=== PATIENT | male | born 1940 | race Two or more races ===

== ENCOUNTER 2017-10-25 08:39 | Inpatient (IN) | payer OTHER ==
[~2017-10-25] VITALS: Ht 170.2 cm; Wt 81.6 kg
[2017-10-25 09:05] VITALS: Ht 170.2 cm; Wt 81.6 kg
[2017-10-25 10:28] LABS: CARBON DIOXIDE 26.6 mmol/L (21-32); CHLORIDE SERUM 106 mmol/L (98-107); CREATININE SERUM 0.9 mg/dL (0.7-1.3); GLUCOSE SERUM 116 mg/dL (74-106); SODIUM SERUM 139 mmol/L (136-145)
[2017-10-25 10:31] LABS: PLATELET COUNT 285 x10^3mcL (130-400); RED CELL DISTRIBUTION WIDTH 15.4 % (11.5-14.5)
[2017-10-25 10:32] LABS: BASOPHIL % 0.1 % (0-2)
[2017-10-25 10:33] LABS: ALKALINE PHOSPHATASE 66 U/L (46-116); ALT/SGPT 15 U/L (16-63); AST/SGOT 11 U/L (15-37); BILIRUBIN TOTAL 0.2 mg/dL (0.20-1.00)
[2017-10-25 10:35] LABS: ALBUMIN 2.9 g/dL (3.4-5.0)
[2017-10-25] MEDS ORDERED: THE50 (11:38)
[2017-10-25] MEDS ORDERED: LOSARTAN POTASS25 M1 (11:38)
[2017-10-25 12:31] LABS: CHOLESTEROL/HDL RATIO 3.3; MAGNESIUM 1.8 mg/dL (1.8-2.4); PHOSPHOROUS 1.8 mg/dL (2.5-4.9)
[2017-10-25 12:37] LABS: T3 TOTAL 0.81 ng/mL
[2017-10-25 12:39] LABS: FREE T4 1.07 ng/dL (0.76-1.46); FREE THYROXINE INDEX 2.8 ug/dL (1.4-4.5); T4(THYROXINE) 7.3 ug/dL (4.7-13.3)
[2017-10-25 13:40] VITALS: BP 94/72
[2017-10-25 14:03] LABS: AMPHETAMINE QUAL UR NONE DETECTED (NEG <=1000)
[2017-10-25 16:30] VITALS: BP 124/58
[2017-10-25 17:47] LABS: PLATELET COUNT 286 x10^3mcL (130-400)
[2017-10-25 17:50] LABS: RED CELL DISTRIBUTION WIDTH 15.2 % (11.5-14.5)
[2017-10-25 22:02] VITALS: BP 110/49
[2017-10-26 06:12] VITALS: BP 114/50
[2017-10-26 07:13] VITALS: BP 114/50
[2017-10-26 07:32] LABS: CALCIUM 7.7 mg/dL (8.5-10.1); CARBON DIOXIDE 22.7 mmol/L (21-32); CHLORIDE SERUM 108 mmol/L (98-107); CREATININE SERUM 1.1 mg/dL (0.7-1.3); GLUCOSE SERUM 99 mg/dL (74-106); MAGNESIUM 1.9 mg/dL (1.8-2.4); PHOSPHOROUS 2.5 mg/dL (2.5-4.9); POTASSIUM SERUM 4.3 mmol/L (3.5-5.1); SODIUM SERUM 140 mmol/L (136-145)
[2017-10-26 11:45] LABS: BASOPHIL % 1.5 % (0-2); PLATELET COUNT 268 x10^3mcL (130-400)
[2017-10-26 12:00] LABS: RED CELL DISTRIBUTION WIDTH 14.9 % (11.5-14.5)
[2017-10-26 14:10] VITALS: BP 113/48
[2017-10-26] MEDS ORDERED: FER300 PO (15:42)
[2017-10-26] MEDS ORDERED: NEPHRO-VITE VITA1 EA PO (15:43)
[2017-10-26] MEDS ORDERED: OMEPRAZOLE40 M1 PO (15:45)
[2017-10-26 17:43] VITALS: BP 113/48
[2017-10-26 18:00] VITALS: BP 115/49
== END 2017-10-26 18:55 | disposition home or self-care (01) | DRG 243 ==
LOC: ED 08:39 → DU 10:57
PROVIDERS: Emergency Medicine; Family Medicine; Internal Medicine Gastroenterology
PROC: 0DB58ZX Excision of Esophagus, Via Natural or Artificial Opening Endoscopic, Diagnostic (ICD-10-PCS; principal; 2017-10-26 08:00)
PROC: 0DB68ZX Excision of Stomach, Via Natural or Artificial Opening Endoscopic, Diagnostic (ICD-10-PCS; 2017-10-26 08:00)
DX: K22.11 Ulcer of esophagus with bleeding (principal); N17.0 Acute kidney failure with tubular necrosis; E43 Unspecified severe protein-calorie malnutrition; E83.39 Other disorders of phosphorus metabolism; E11.9 Type 2 diabetes mellitus without complications; D64.9 Anemia, unspecified; I10 Essential (primary) hypertension; K44.9 Diaphragmatic hernia without obstruction or gangrene; K21.9 Gastro-esophageal reflux disease without esophagitis; E78.1 Pure hyperglyceridemia; Z68.32 Body mass index [BMI] 32.0-32.9, adult
CPT/HCPCS: 43235; 82962; 84439; 94150; C9113; J1200; J1610; J2250; J2310; J2405; J3010; J3490; J7030; J7620; Q0092

== ENCOUNTER 2020-02-01 20:24 | Inpatient (IN) | payer OTHER ==
[~2020-02-01] VITALS: Ht 175.3 cm; Wt 88.5 kg
[~2020-02-01 20:24] MED LIST: FER300 PO; LOSARTAN POTASS25 M1; NEPHRO-VITE VITA1 EA PO; OMEPRAZOLE40 M1 PO; THE50
[2020-02-01 21:49] LABS: microscopic required? NO
[2020-02-01 22:09] LABS: BASOPHIL % 0.7 % (0-2); PLATELET COUNT 278 x10^3mcL (130-400); RED CELL DISTRIBUTION WIDTH 14.1 % (11.5-14.5)
[2020-02-01 22:09] LABS: UA SPECIFIC GRAVITY 1.015 (1.005-1.035); urine erythrocyte NEGATIVE (NEGATIVE)
[2020-02-01 22:25] LABS: CALCIUM 9.1 mg/dL (8.5-10.1); CARBON DIOXIDE 27.7 mmol/L (21-32); CHLORIDE SERUM 104 mmol/L (98-107); CREATININE SERUM 1.1 mg/dL (0.7-1.3); GLUCOSE SERUM 109 mg/dL (74-106); POTASSIUM SERUM 4.1 mmol/L (3.5-5.1); SODIUM SERUM 139 mmol/L (136-145)
[2020-02-01 22:29] LABS: ALBUMIN 3.5 g/dL (3.4-5.0); ALKALINE PHOSPHATASE 90 U/L (46-116); ALT/SGPT 20 U/L (16-63); AST/SGOT 17 U/L (15-37); BILIRUBIN TOTAL 0.2 mg/dL (0.20-1.00); C REACTIVE PROTEIN 0.7 mg/dL (<=0.9); LACTIC DEHYDROGENASE (LDH) 210 U/L (100-190); TOTAL PROTEIN, SERUM 7.3 g/dL (6.4-8.2)
[2020-02-02 00:21] LABS: CHOLESTEROL/HDL RATIO 3.4
[2020-02-02 00:30] VITALS: BP 164/83
[2020-02-02 00:48] VITALS: BP 139/61
[2020-02-02 00:51] VITALS: Ht 175.3 cm; Wt 88.5 kg
[2020-02-02 07:19] LABS: BASOPHIL % 0.2 % (0-2); PLATELET COUNT 290 x10^3mcL (130-400); RED CELL DISTRIBUTION WIDTH 13.8 % (11.5-14.5)
[2020-02-02 07:48] LABS: CALCIUM 9.2 mg/dL (8.5-10.1); CARBON DIOXIDE 26.5 mmol/L (21-32); CHLORIDE SERUM 103 mmol/L (98-107); GLUCOSE SERUM 145 mg/dL (74-106); MAGNESIUM 1.8 mg/dL (1.8-2.4); PHOSPHOROUS 2.6 mg/dL (2.5-4.9); POTASSIUM SERUM 4.6 mmol/L (3.5-5.1); SODIUM SERUM 139 mmol/L (136-145)
[2020-02-02 09:00] VITALS: BP 148/78
[2020-02-02 13:13] VITALS: BP 150/79
[2020-02-02 16:00] VITALS: BP 158/91
[2020-02-02 21:20] VITALS: BP 151/68
[2020-02-03 05:22] VITALS: BP 144/66
[2020-02-03 06:27] LABS: PLATELET COUNT 273 x10^3mcL (130-400); RED CELL DISTRIBUTION WIDTH 13.6 % (11.5-14.5)
[2020-02-03 06:39] LABS: CALCIUM 9.4 mg/dL (8.5-10.1); CARBON DIOXIDE 28.2 mmol/L (21-32); CHLORIDE SERUM 103 mmol/L (98-107); CREATININE SERUM 1.1 mg/dL (0.7-1.3); GLUCOSE SERUM 139 mg/dL (74-106); MAGNESIUM 2.1 mg/dL (1.8-2.4); SODIUM SERUM 138 mmol/L (136-145)
[2020-02-03 06:46] LABS: AMPHETAMINE QUAL UR NONE DETECTED (See below)
[2020-02-03 08:28] LABS: BASOPHIL % 0 % (0-2)
[2020-02-03 09:00] VITALS: BP 137/87
[2020-02-03 11:29] VITALS: BP 165/83
[2020-02-03 17:50] VITALS: BP 168/68
[2020-02-03 19:47] VITALS: BP 154/74
[2020-02-04 05:14] VITALS: BP 158/73
[2020-02-04 06:37] LABS: CALCIUM 9.4 mg/dL (8.5-10.1); CARBON DIOXIDE 25.8 mmol/L (21-32); CHLORIDE SERUM 104 mmol/L (98-107); GLUCOSE SERUM 134 mg/dL (74-106); MAGNESIUM 2.3 mg/dL (1.8-2.4); PHOSPHOROUS 3.4 mg/dL (2.5-4.9); POTASSIUM SERUM 4.5 mmol/L (3.5-5.1); SODIUM SERUM 140 mmol/L (136-145)
[2020-02-04 06:46] LABS: PLATELET COUNT 277 x10^3mcL (130-400)
[2020-02-04 06:47] LABS: BASOPHIL % 0 % (0-2)
[2020-02-04 08:40] VITALS: BP 166/78
[2020-02-04 12:15] VITALS: BP 172/81
[2020-02-04 16:45] VITALS: BP 179/86
[2020-02-04 17:42] VITALS: BP 173/90
[2020-02-04 20:43] VITALS: BP 149/74
[2020-02-05 05:47] VITALS: BP 150/73
[2020-02-05 07:15] LABS: PLATELET COUNT 305 x10^3mcL (130-400); RED CELL DISTRIBUTION WIDTH 13.8 % (11.5-14.5)
[2020-02-05 07:28] LABS: CALCIUM 9.3 mg/dL (8.5-10.1); CHLORIDE SERUM 101 mmol/L (98-107); GLUCOSE SERUM 123 mg/dL (74-106); MAGNESIUM 2.3 mg/dL (1.8-2.4); PHOSPHOROUS 4.1 mg/dL (2.5-4.9); POTASSIUM SERUM 4.6 mmol/L (3.5-5.1); SODIUM SERUM 137 mmol/L (136-145)
[2020-02-05 07:31] LABS: BASOPHIL % 0 % (0-2)
[2020-02-05 07:37] VITALS: BP 147/71
[2020-02-05] MEDS ORDERED: MICROZIDE12.5 MG PO (09:50)
[2020-02-05] MEDS ORDERED: MEDDP PO (09:52)
[2020-02-05] MEDS ORDERED: SYMBICORT1 AE3 IH (09:53)
[2020-02-05] MEDS ORDERED: MUCINEX600 MG PO (10:00)
[2020-02-05] MEDS ORDERED: SINGULAIR10 MG PO (10:00)
[2020-02-05 11:29] VITALS: BP 157/81
== END 2020-02-05 13:45 | disposition home or self-care (01) | DRG 139 ==
LOC: ED 20:24 → DU 23:09
PROVIDERS: Emergency Medicine; ADMIT Student in an Organized Health Care Education/Training Program
DX: J18.9 Pneumonia, unspecified organism (principal); J45.901 Unspecified asthma with (acute) exacerbation; E78.5 Hyperlipidemia, unspecified; Z20.828 Contact with and (suspected) exposure to other viral communicable diseases; I10 Essential (primary) hypertension; Z87.891 Personal history of nicotine dependence
CPT/HCPCS: 82962; 83880; 85378; 87804; 94150; 97116-GP; C9113; G0378; J0360; J0456; J0696; J2930; J3535; J7040; J7613; Q0092